=== PATIENT | female | born 1980 | race Caucasian/White ===

== ENCOUNTER 2019-04-16 05:55 | Day surgery (SDC) | payer OTHER ==
[2019-04-16] MEDS ORDERED: MIDAZOLAM 1 MG/ML 2 ML INJ ×2 (08:24)
[2019-04-16] MEDS ORDERED: FENTAnyl 50 MCG/ML VIAL (08:24)
== END 2019-04-16 11:44 | disposition home or self-care (01) ==
LOC: GIL 05:55
DX: K29.60 Other gastritis without bleeding (principal); E03.9 Hypothyroidism, unspecified
CPT/HCPCS: 43239; 84703; 88305